=== PATIENT | male | born 1955 | race Hispanic/Latino ===

== ENCOUNTER → 2019-09-24 | Outpatient (CLI) | payer OTHER | END | disposition home or self-care (01) | LOC: SHCH 12:42 | PROVIDERS: ATTEND Internal Medicine Cardiovascular Disease | DX: I10 Essential (primary) hypertension (principal); R07.9 Chest pain, unspecified ==

== ENCOUNTER → 2019-10-12 | Outpatient (CLI) | payer OTHER ==
[~2019-10-12] MED LIST: REGADENOSON 0.4 MG/5 ML PF SYG IVP SCH
== END | disposition home or self-care (01) ==
LOC: SHCH 08:12
PROVIDERS: ATTEND Internal Medicine Cardiovascular Disease
DX: I10 Essential (primary) hypertension (principal); R07.9 Chest pain, unspecified
CPT/HCPCS: 78452; 93017; 96374; A9500 ×2; J2785

== ENCOUNTER → 2020-10-14 | Outpatient (CLI) | payer OTHER | END | disposition home or self-care (01) | LOC: OIH 14:30 | PROVIDERS: ATTEND Internal Medicine Cardiovascular Disease | DX: Z13.6 Encounter for screening for cardiovascular disorders (principal) | CPT/HCPCS: 75571 ==

== ENCOUNTER 2023-12-14 20:27 | Emergency (ER) | payer OTHER ==
[~2023-12-14] VITALS: Ht 180.3 cm; Wt 122.5 kg
[2023-12-14 21:30] LABS: APPEARANCE,URINE CLEAR (CLEAR); BILIRUBIN,URINE NEGATIVE (NEGATIVE); COLOR,URINE COLORLESS (YELLOW); GLUCOSE, URINE (UA) NEGATIVE (NEGATIVE); KETONES,URINE NEGATIVE (NEGATIVE); LEUKOCYTE ESTERASE ,URINE NEGATIVE Leu/uL (NEGATIVE); NITRATE,URINE NEGATIVE (NEGATIVE); OCCULT BLOOD,URINE NEGATIVE (NEGATIVE); PROTEIN,URINE NEGATIVE (NEGATIVE); UROBILINOGEN,URINE 0.2 mg/dL (0.2-1.0)
[2023-12-14 21:30] LABS: BASOPHILS # (AUTO) 0.04 K/uL (0.00-0.20); BASOPHILS % (AUTO) 0.4 % (0.0-5.0); EOSINOPHILS # (AUTO) 0.09 K/uL (0.00-0.70); HEMATOCRIT 39.8 % (42-54); IMMATURE GRANULOCYTE ABSOLUTE 0.04 K/uL (0-1); LYMPHOCYTES % (AUTO) 21.5 % (21.0-51.0); MEAN CORPUSCULAR HEMOGLOBIN 30.8 pg (27.0-33.0); MEAN CORPUSCULAR HGB CONC 34.4 g/dL (32.0-36.0); MEAN CORPUSCULAR VOLUME 89.4 fL (79-99); MONOCYTES # (AUTO) 0.7 K/uL (0.1-1.0); MONOCYTES % (AUTO) 7.3 % (3.0-13.0); NEUTROPHILS # (AUTO) 6.4 K/uL (1.8-7.7); NEUTROPHILS % (AUTO) 69.4 % (40.0-77.0); PLATELET COUNT (AUTO) 182 K/uL (130-400); RED BLOOD CELL COUNT(AUTO) 4.45 MIL/uL (4.50-6.20); RED CELL DISTRIBUTION WIDTH 12.4 % (11.0-15.5); WHITE BLOOD COUNT (AUTO) 9.2 K/uL (4.8-10.8)
[2023-12-14 21:32] LABS: RBC,URINE 0-1 /HPF (0-1); WBC,URINE 0-1 /HPF (0-1)
[2023-12-14 21:41] LABS: CREATININE 1.1 mg/dL (0.5-1.3); POTASSIUM 3.6 mmol/L (3.5-5.1)
[2023-12-14] MEDS ORDERED: TYL2 PO (21:52)
[2023-12-14] MEDS ORDERED: CEPH500B PO (21:52)
[2023-12-14] MEDS ORDERED: TAMS-1 PO (21:52)
[2023-12-14] MEDS: traMADol HCL 50 MG TABLET PO ONE (22:02)
[2023-12-14] MEDS: 0.9%NACL 1000ML 1,000 ML IV ONE (22:03)
[2023-12-14] MEDS: tamSULOsin HCL 0.4 MG CAP.ER.24H PO ONE (22:03)
[2023-12-14] MEDS: ondanSETRON 4MG INJ IVP ONE (23:05)
[2023-12-14 23:15] VITALS: BP 142/64; PULSE 76; RESP 16; TEMP 98.2; O2SAT 98
== END 2023-12-14 23:16 | disposition home or self-care (01) ==
LOC: EDH 20:27
DX: N20.0 Calculus of kidney (principal); E11.9 Type 2 diabetes mellitus without complications; E78.00 Pure hypercholesterolemia, unspecified; I10 Essential (primary) hypertension; Z88.6 Allergy status to analgesic agent; Z98.890 Other specified postprocedural states
CPT/HCPCS: 99285; 74176; 96374; 96361; 80048; 85025; 81001; 36415; J7030; J2405

== ENCOUNTER 2024-02-04 20:00 | Emergency (ER) | payer OTHER ==
[~2024-02-04] VITALS: Ht 180.3 cm; Wt 120.7 kg
[~2024-02-04 20:00] MED LIST changes: +ACET-2079 PO; -REGADENOSON 0.4 MG/5 ML PF SYG IVP SCH
--- NOTE | 2024-02-04 20:08 | EKG ---
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
[2024-02-04 20:33] LABS: BASOPHILS # (AUTO) 0.04 K/uL (0.00-0.20); BASOPHILS % (AUTO) 0.5 % (0.0-5.0); EOSINOPHILS # (AUTO) 0.15 K/uL (0.00-0.70); IMMATURE GRANULOCYTE ABSOLUTE 0.04 K/uL (0-1); LYMPHOCYTES # (AUTO) 2.3 K/uL (1.0-4.8); LYMPHOCYTES % (AUTO) 31.1 % (21.0-51.0); MEAN CORPUSCULAR HEMOGLOBIN 31.9 pg (27.0-33.0); MEAN CORPUSCULAR HGB CONC 34.1 g/dL (32.0-36.0); MEAN CORPUSCULAR VOLUME 93.5 fL (79-99); MONOCYTES # (AUTO) 0.6 K/uL (0.1-1.0); MONOCYTES % (AUTO) 7.8 % (3.0-13.0); NEUTROPHILS # (AUTO) 4.3 K/uL (1.8-7.7); NEUTROPHILS % (AUTO) 58.1 % (40.0-77.0); PLATELET COUNT (AUTO) 178 K/uL (130-400); RED BLOOD CELL COUNT(AUTO) 4.17 MIL/uL (4.50-6.20); RED CELL DISTRIBUTION WIDTH 12.8 % (11.0-15.5); WHITE BLOOD COUNT (AUTO) 7.5 K/uL (4.8-10.8)
[2024-02-04 20:50] LABS: POTASSIUM 3.9 mmol/L (3.5-5.1)
[2024-02-04] MEDS: morPHINE 2 MG SYG IVP ONE (20:55)
[2024-02-04] MEDS: ORPHENADRINE 60MG/2ML IVP ONE (20:55)
[2024-02-04 21:05] VITALS: BP 150/66; PULSE 71; RESP 18; TEMP 98.1; O2SAT 98
[2024-02-04] MEDS ORDERED: CYCL10TA16 PO (21:15)
--- NOTE | 2024-02-04 21:17 | ERN ---
General Chief Complaint: Multiple Complaints Stated Complaint: NECK PAIN Time Seen by MD: 20:02 Time Seen by Midlevel: 20:02 Source: patient History of Present Illness Initial Comments Patient is a 68-year-old male presenting to the emergency department with left- sided neck pain that started two days ago. The neck pain radiates to the back of his head and left arm. The pain is rated five on a 0-10 scale. He specifically denies any chest pain or difficulty breathing. He also denies nausea, vomiting, diarrhea, dizziness, vision changes, headache, or any other symptoms at this time. He does report going to the chiropractor several days ago and believes this may be the result of the neck manipulation they did to him. Allergies: Coded Allergies: metoclopramide (Unverified Allergy, Unknown, 01/05/24) naproxen (Unverified Allergy, Unknown, 10/11/19) timolol (Unverified Allergy, Unknown, 01/05/24) Home Meds Active Scripts Cyclobenzaprine HCl (Flexeril) 10 Mg Tab, 10 MG PO BID for muscle sstiffness for 5 Days, #10 TAB 0 Refills Prov:MILDRED AVILA 02/04/24 Acetaminophen with Codeine (Acetaminophen-Cod #3 Tablet) 300 Mg-30 Mg Tablet, 1 TAB PO Q4H PRN for MODERATE TO SEVERE PAIN, #15 TAB Prov:BRISEYDA LACY NP 12/31/23 Past Medical History Past Medical History: Diabetes-Type II, High Cholesterol, Hypertension, Hypothyroid, Other Medical History Other: ACID REFLUX, GASTRITIS, NECK PAIN Past Surgical History: Other Surgical History Other: SEPTOPLASTY ROS Dictation CONSTITUTIONAL: Negative except for HPI HEAD/FACE: Negative except for HPI EENT: Negative except for HPI RESPIRATORY: Negative except for HPI GASTROINTESTINAL/ABDOMINAL: Negative except for HPI GENITOURINARY: Negative except for HPI MUSCULOSKELETAL: Negative except for HPI INTEGUMENTARY: Negative except for HPI NEUROLOGICAL/PSYCH: Negative except for HPI HEMATOLOGIC/LYMPHATIC: Negative except for HPI All Systems Negative, Except as noted above. 13 point review of systems assessed and all negative except for above. Physical Exam Physical Exam Dictation Vital Signs reviewed General Appearance: Alert, oriented x 3, no acute distress, well developed, no urished. Head and Face: non-traumatic. Eyes: PERRL, pink conjunctivas, eyelid no trauma, anterior chamber with arcus senilis. Ears: Pinnas intact and no signs of trauma or erythema ear canals clear and no discharge TM no erythema Nose: No discharge, no bleeding. Oropharynx: Mouth normal, tongue pink, pharynx clear,no erythema, tonsils no exudates, no abscesses noted, mucous m embrane moist Neck: Supple, non-tender, no thyromegaly, no masses, no JVD, no bruits Breast:Deferred Chest:No tenderness, no crepitus, no paradoxical movement, no retractions Lungs:Clear, well-ventilated, symmetric, no rales, no wheezing, no rhonchi, no stridor, good breath sounds bilaterally Heart: Regular rate, regular rhythm, no murmur, no gallops Vascular: no peripheral edema, Abdomen: Soft, positive bowel sounds, nondistended, no guarding, nontender, no rebound, no masses no hepatomegaly, no splenomegaly, no Bradley's sign, no hernias. Rectal: Deferred Genital: Deferred Neurological: Normal speech, motor function intact, sensory function intact Musculoskeletal: Neck nontender, full range of motion, back nontender, full range of motion, Extremities: nontender, full range of motion Skin: Color pink, dry, no turgor, no rash, no lacerations, no abrasions, no contusions. Lymphatic: Deferred Results Laboratory and Microbiology Lab and Micro Result Laboratory Tests Test 02/04/24 20:24 White Blood Count 7.5 K/uL (4.8-10.8) Red Blood Count 4.17 MIL/uL (4.50-6.20) L Hemoglobin 13.3 g/dL (14.0-18.0) L Hematocrit 39.0 % (42-54) L Mean Corpuscular Volume 93.5 fL (79-99) Mean Corpuscular Hemoglobin 31.9 pg (27.0-33.0) Mean Corpuscular Hemoglobin Concent 34.1 g/dL (32.0-36.0) Red Cell Distribution Width 12.8 % (11.0-15.5) Platelet Count 178 K/uL (130-400) Mean Platelet Volume 9.7 fL (7.5-10.5) Immature Granulocyte % (Auto) 0.5 % (0-1) Neutrophils (%) (Auto) 58.1 % (40.0-77.0) Lymphocytes (%) (Auto) 31.1 % (21.0-51.0) Monocytes (%) (Auto) 7.8 % (3.0-13.0) Eosinophils (%) (Auto) 2.0 % (0.0-8.0) Basophils (%) (Auto) 0.5 % (0.0-5.0) Neutrophils # (Auto) 4.3 K/uL (1.8-7.7) Lymphocytes # (Auto) 2.3 K/uL (1.0-4.8) Monocytes # (Auto) 0.6 K/uL (0.1-1.0) Eosinophils # (Auto) 0.15 K/uL (0.00-0.70) Basophils # (Auto) 0.04 K/uL (0.00-0.20) Absolute Immature Granulocyte (auto 0.04 K/uL (0-1) Nucleated Red Blood Cells 0.0 % (0.0-0.19) Sodium Level 138 mmol/L (136-145) Potassium Level 3.9 mmol/L (3.5-5.1) Chloride Level 103 mmol/L (101-111) Carbon Dioxide Level 28 mmol/L (21-32) Blood Urea Nitrogen 21 mg/dL (7-18) H Creatinine 1.0 mg/dL (0.5-1.3) Glomerular Filtration Rate Calc 81 mL/min (>90) Random Glucose 150 mg/dL (70-105) H Total Calcium 9.4 mg/dL (8.5-10.1) Magnesium Level 2.00 mg/dL (1.80-2.40) Troponin I High Sensitivity 6 ng/L (4-75) Labs Reviewed?: Yes MDM MDM: Patient is a 68-year-old male presenting to the emergency department with left-sided neck pain that started two days ago. The neck pain radiates to the back of his head and left arm. The pain is rated five on a 0-10 scale. He specifically denies any chest pain or difficulty breathing. He also denies nausea, vomiting, diarrhea, dizziness, vision changes, headache, or any other symptoms at this time. He does report going to the chiropractor several days a go and believes this may be the result of the neck manipulation they did to him. On physical examination patient is alert and oriented x4. He was able to ambulate from the triage area to the examination room without assistance and with a normal gait. His neurological examination is unremarkable. Patient has a GCS of 15. There was no facial droop, no slurred speech, no arm drift. He denies numbness to bilateral upper and lower extremities. He was some mild paraspinal cervical tenderness no midline tenderness. He was full range motion of his neck. Cardiac workup was performed given his pain to the left arm however everything is normal. Cardiac enzymes are negative. EKG does not show any ST elevations. Chest x-ray does not show any acute abnormalities. Patient was given pain medication and a muscle relaxer and will be discharged home with supportive management. Patient was advised to follow up with the PCP in 2-3 days for repeat evaluation. Differential diagnosis: Cervical strain, ACS, There are no social concerns with this patient. Prescription drug management Prescriptions will include: Flexeril Medical management and examination interpretation discussions were had by me with other qualified healthcare professionals as indicated for the patient's care. ED Course Orders Procedure Category Date Status Time 12 Lead Ekg Tracing- EKG 02/04/24 Resulted Technical 20:03 Troponin I High LAB 02/04/24 Complete Sensitivity 20:03 Cbc With Differential LAB 02/04/24 Complete 20:07 Basic Metabolic Panel LAB 02/04/24 Complete 20:07 Magnesium LAB 02/04/24 Complete 20:07 Chest 1vw RAD 02/04/24 Resulted 20:07 Orphenadrine Citrate PHA 02/04/24 Complete (Norflex) 21:00 Morphine 2mg Syg PHA 02/04/24 Complete (Morphine 2mg Syg) 21:00 Current Medications Medications (Trade) Dose Ordered Sig/Natasha Route PRN Reason Start Time Stop Time Status Last Admin Dose Admin Morphine Sulfate (morPHINE 2MG SYG) 2 mg ONCE ONCE IVP 02/04/24 21:00 02/04/24 21:01 DC 02/04/24 20:55 Orphenadrine Citrate (Norflex) 60 mg ONCE ONCE IVP 02/04/24 21:00 02/04/24 21:01 DC 02/04/24 20:55 Vital Signs Date Time Temp Pulse Resp B/P (MAP) Pulse Ox O2 Delivery O2 Flow Rate FiO2 02/04/24 21:05 98.1 71 18 150/66 98 Room Air* 0 21 02/04/24 20:21 98.8 74 20 168/83 98 Room Air* 0 02/04/24 20:02 98.2 64 16 170/83 98 Room Air [facility] [address] [place] [address] IMAGING REPORT Signed PATIENT: FERNANDO ROBISON MR#: [id number] : 1955 SEX: M AGE: 68 LOCATION: [facility] ORDER 07 STATUS: REG ER REPORT#: [id number] SERVICE 06 REASON: LEFT ARM PAIN, SOB ORDERING PHYSICIAN: MILDRED AVILA PROCEDURE: CXR1VW - CHEST 1VW INDICATION: LEFT ARM PAIN, SOB TECHNIQUE: CHEST 1VW COMPARISON: 01/05/2024 FINDINGS/IMPRESSION: Prominent bilateral interstitial markings which may represent bronchitis or vascular congestion in the proper clinical setting. Cardiac silhouette is within normal limits. Mild degenerative changes of the spine. The visualized upper abdomen appears unremarkable. DICTATED BY: DEBORAH MESA MD DATE: 02/04/242118 ELECTRONICALLY SIGNED BY: DEBORAH MESA MD DATE: 02/04/242121 DX & DISP Disposition: Discharge Departure Impression: Primary Impression: Cervical strain Condition: Stable Scripts Cyclobenzaprine HCl (Flexeril) 10 Mg Tab 10 MG PO BID for muscle sstiffness for 5 Days, #10 TAB 0 Refills Prov: MILDRED AVILA 02/04/24 Additional Instructions: Your blood work today is unremarkable. Your neck pain is most likely related to your visit with a chiropractor. Please avoid any neck manipulation in the future as this may cause injury to her neck. Follow up with your primary care doctor in 2-3 days for repeat evaluation. Referrals: ADRI DUNBAR (PCP) Time of Disposition: 21:14 I have reviewed the case, and I agree with, Diagnosis and Plan I performed the substantive portion of the visit. I have reviewed and personally made and approve the management plan that is documented in the note by myself or the LANCE. I acknowledge for responsibility for the patient's management plan. MILDRED AVILA Feb 04, 2024 21:17
--- NOTE | 2024-02-04 21:22 | HMCIMG ---
INDICATION: LEFT ARM PAIN, SOB TECHNIQUE: CHEST 1VW COMPARISON: 01/05/2024 FINDINGS/IMPRESSION: Prominent bilateral interstitial markings which may represent bronchitis or vascular congestion in the proper clinical setting. Cardiac silhouette is within normal limits. Mild degenerative changes of the spine. The visualized upper abdomen appears unremarkable.
== END 2024-02-04 21:56 | disposition home or self-care (01) ==
LOC: EDH 20:00
DX: S16.1XXA Strain of muscle, fascia and tendon at neck level, initial encounter (principal); E03.9 Hypothyroidism, unspecified; E11.9 Type 2 diabetes mellitus without complications; E78.00 Pure hypercholesterolemia, unspecified; I10 Essential (primary) hypertension; K21.9 Gastro-esophageal reflux disease without esophagitis; Z88.6 Allergy status to analgesic agent; Z98.890 Other specified postprocedural states; X58.XXXA Exposure to other specified factors, initial encounter; Y93.89 Activity, other specified; Y92.89 Other specified places as the place of occurrence of the external cause; Y99.8 Other external cause status
CPT/HCPCS: 99285; 96374; 71045; 96375; 83735; 84484; 80048; 85025; 36415; 93005; J2270; J2360

== ENCOUNTER 2024-04-03 22:00 | Emergency (ER) | payer OTHER ==
[~2024-04-03] VITALS: Ht 165.1 cm; Wt 72.6 kg
[~2024-04-03 22:00] MED LIST changes: +CYCL10TA16 PO
[2024-04-03 22:20] LABS: BASOPHILS # (AUTO) 0.04 K/uL (0.00-0.20); BASOPHILS % (AUTO) 0.4 % (0.0-5.0); EOSINOPHILS # (AUTO) 0.07 K/uL (0.00-0.70); EOSINOPHILS % (AUTO) 0.7 % (0.0-8.0); HEMATOCRIT 38.5 % (42-54); IMMATURE GRANULOCYTE ABSOLUTE 0.06 K/uL (0-1); LYMPHOCYTES # (AUTO) 1.7 K/uL (1.0-4.8); LYMPHOCYTES % (AUTO) 17.8 % (21.0-51.0); MEAN CORPUSCULAR HEMOGLOBIN 31.5 pg (27.0-33.0); MEAN CORPUSCULAR HGB CONC 34.8 g/dL (32.0-36.0); MEAN CORPUSCULAR VOLUME 90.6 fL (79-99); MONOCYTES # (AUTO) 0.4 K/uL (0.1-1.0); MONOCYTES % (AUTO) 4.7 % (3.0-13.0); NEUTROPHILS # (AUTO) 7.1 K/uL (1.8-7.7); NEUTROPHILS % (AUTO) 75.8 % (40.0-77.0); PLATELET COUNT (AUTO) 186 K/uL (130-400); RED BLOOD CELL COUNT(AUTO) 4.25 MIL/uL (4.50-6.20); RED CELL DISTRIBUTION WIDTH 12.6 % (11.0-15.5); WHITE BLOOD COUNT (AUTO) 9.4 K/uL (4.8-10.8)
[2024-04-03 22:30] LABS: CARBON DIOXIDE 29 mmol/L (21-32); CHLORIDE 100 mmol/L (101-111); CREATININE 1.1 mg/dL (0.5-1.3); GLOMERULAR FILTR. RATE CALC 73 mL/min (>90); GLUCOSE,RANDOM 198 mg/dL (70-105); SODIUM SERUM 136 mmol/L (136-145); UREA NITROGEN, BLOOD 18 mg/dL (7-18)
[2024-04-03] MEDS: morPHINE 4 MG SYG IVP ONE (22:33)
[2024-04-03] MEDS: MAG/ALUM/SIMETH 30 ML UDCUP PO ONE (22:33)
[2024-04-03] MEDS: DICYCLOMINE HCL 20 MG TAB PO ONE (22:33)
[2024-04-03 22:35] LABS: ALANINE AMINOTRANSFERASE 30 U/L (12-78); ALBUMIN 3.5 g/dL (3.5-5.0); ASPARTATE AMINOTRANSFERASE 17 U/L (10-37); BILIRUBIN,DIRECT < 0.1 mg/dL (0.0-0.3); BILIRUBIN,TOTAL 0.2 mg/dL (0.2-1.0); TOTAL PROTEIN, SERUM 7.5 g/dL (6.0-8.3)
[2024-04-03] MEDS ORDERED: IOHEXOL 350 MG/ML 100ML INFUS..BTL IV ONE (22:39)
--- NOTE | 2024-04-03 23:33 | HMCIMG ---
CT ABDOMEN/PELVIS W/CONTRAST HISTORY: Abdominal pain COMPARISON: 01/05/2024 TECHNIQUE: Multiple sequential axial images of the abdomen and pelvis were obtained from the dome of the diaphragm through symphysis pubis. Patient was given 100 cc of Omnipaque through intravenous route. Oral contrast was not given. FINDINGS: No pleural effusion is seen bilaterally. There is no evidence of parenchymal disease or pulmonary nodule of the visualized lower lungs. Degenerative changes of the thoracolumbar spine are present. The heart is not enlarged. Liver is enlarged with fatty changes measuring 19 cm. There is fluid-filled small bowel loop may be related to enterocolitis. The liver, spleen, adrenal glands and pancreas are unremarkable. There is no evidence of hydronephrosis bilaterally. No evidence of renal stone is seen. Fecal material is seen in the colon. There are normal size retroperitoneal and mesenteric lymph nodes. No ascites is seen. No CT evidence of acute appendicitis is seen. Pelvic sidewalls are symmetric bilaterally. Bladder is well distended without wall thickening. IMPRESSION: 1. Fluid-filled small bowel loops may be related to enteritis. No CT evidence of acute appendicitis is seen. CT was performed with one or more following dose reduction techniques: automated exposure control, adjustment of the mA and kv according to patient's size, or use of a iterative reconstruction technique.
[2024-04-03 23:41] LABS: APPEARANCE,URINE CLEAR (CLEAR); BILIRUBIN,URINE NEGATIVE (NEGATIVE); COLOR,URINE COLORLESS (YELLOW); GLUCOSE, URINE (UA) 200 mg/dL (NEGATIVE); KETONES,URINE NEGATIVE (NEGATIVE); LEUKOCYTE ESTERASE ,URINE NEGATIVE Leu/uL (NEGATIVE); NITRATE,URINE NEGATIVE (NEGATIVE); OCCULT BLOOD,URINE NEGATIVE (NEGATIVE); PROTEIN,URINE NEGATIVE (NEGATIVE); UROBILINOGEN,URINE 0.2 mg/dL (0.2-1.0)
[2024-04-03 23:43] LABS: ADD UA MICROSCOPIC YES
[2024-04-03 23:46] LABS: BACTERIA,URINE None Seen /HPF (None Seen); RBC,URINE 0-1 /HPF (0-1); SQUAMOUS EPITHELIAL CELL,UR Rare /HPF (0-2); WBC,URINE 0-1 /HPF (0-1)
[2024-04-03] MEDS ORDERED: ONDA-243 PO (23:59)
[2024-04-03] MEDS ORDERED: DICY20TA2 PO (23:59)
--- NOTE | 2024-04-04 00:01 | ERN ---
General Chief Complaint: Abdominal Pain Stated Complaint: ABDOMINAL PAIN Time Seen by MD: 22:03 History of Present Illness Initial Comments 68-year-old male brought in from home by EMS for epigastric pain and vomiting for 2 hours. Patient reports he has been in his normal state of health. He ate [employer] chicken at around 7:00 p.m. on 04/03/2024. Afterwards he developed epigastric pain and nausea. He vomited 2 times, non bilious, nonbloody vomit. No fevers, chest pain, diarrhea, or other symptoms. Stable vital signs per EMS. Allergies: Coded Allergies: metoclopramide (Unverified Allergy, Unknown, 01/05/24) naproxen (Unverified Allergy, Unknown, 10/11/19) timolol (Unverified Allergy, Unknown, 01/05/24) Home Meds Active Scripts Cyclobenzaprine HCl (Flexeril) 10 Mg Tab, 10 MG PO BID for muscle sstiffness for 5 Days, #10 TAB 0 Refills Prov:MILDRED AVILA 02/04/24 Acetaminophen with Codeine (Acetaminophen-Cod #3 Tablet) 300 Mg-30 Mg Tablet, 1 TAB PO Q4H PRN for MODERATE TO SEVERE PAIN, #15 TAB Prov:BRISEYDA LACY NP 12/31/23 Past Medical History Past Medical History: Diabetes-Type II, High Cholesterol, Hypertension, Hypothyroid, Other Medical History Other: ACID REFLUX, GASTRITIS, NECK PAIN Past Surgical History: Other Surgical History Other: SEPTOPLASTY ROS Dictation CONSTITUTIONAL: No chills, no fever, no weakness, no diaphoresis, no malaise. HEAD/FACE: No signs of trauma. EENT: No eye pain, no blurred vision, no tearing, no double vision, no ear pain, no ear discharge, no nose pain, no nasal congestion, no throat pain, no throat swelling, no mouth pain. RESPIRATORY: No cough, no orthopnea, no SOB, no stridor, no wheezing. CARDIOVASCULAR: No chest pain, no edema, no palpitations, no syncope. GASTROINTESTINAL/ABDOMINAL: Abdominal pain and vomiting GENITOURINARY: No abnormal discharge, no dysuria, no frequent urination, no hematuria. No complaints of pain in the genitals. MUSCULOSKELETAL: No back pain, no gout, no joint pain, no joint swelling, no muscle pain, no muscle stiffness, no neck pain. INTEGUMENTARY: No change in color, no change in hair/nails, no dryness, no lesion, no lumps, no rash. NEUROLOGICAL/PSYCH: No anxiety, not depressed, no emotional problem, no headache, no numbness, no pre-existing deficit, no history of seizures, no tremors, no weakness. HEMATOLOGIC/LYMPHATIC: Not anemic, no history of blood clots, no apparent bleeding, no bruising, glands not swollen. All Systems Negative, Except as Noted. Physical Exam Physical Exam Dictation VITAL SIGNS: Reviewed. GENERAL APPEARANCE: Alert, oriented x3, no acute distress, obese. HEAD AND FACE: Non-traumatic. EYES: PERRL, pink conjunctivas, eyelid no trauma, anterior chamber clear. EARS: Pinnas intact and no signs of trauma or erythema. Ear canals clear and no discharge. TMs no erythema. NOSE: No discharge, no bleeding. OROPHARYNX: Mouth normal, teeth no caries, tongue pink. Pharynx clear, no erythema. Tonsils no exudates, no abscesses noted. Mucous membrane moist. NECK: Supple, non-tender, no thyromegaly, no masses, no JVD, no bruits. BREAST: Deferred. CHEST: No tenderness, no crepitus, no paradoxical movement, no retractions. LUNGS: Clear, well-ventilated, symmetric, no rales, no wheezing, no rhonchi, no stridor, good breath sounds bilaterally. HEART: Regular rate, regular rhythm, no murmur, no gallops. VASCULAR: No peripheral edema. ABDOMEN: Soft, positive bowel sounds, nondistended, no guarding, nontender, no rebound, no masses no hepatomegaly, no splenomegaly, no Bradley's sign, no hernias. RECTAL: Deferred. GENITAL: Deferred. NEUROLOGICAL: Normal speech, gross motor function intact, gross sensory function intact. MUSCULOSKELETAL: Neck nontender, full range of motion, back nontender, full range of motion. EXTREMITIES: Nontender, full range of motion. SKIN: Color pink, dry, no turgor, no rash, no lacerations, no abrasions, no contusions. LYMPHATICS: Deferred. Results Laboratory and Microbiology Lab and Micro Result Laboratory Tests Test 04/03/24 22:13 04/03/24 23:30 White Blood Count 9.4 K/uL (4.8-10.8) Red Blood Count 4.25 MIL/uL (4.50-6.20) L Hemoglobin 13.4 g/dL (14.0-18.0) L Hematocrit 38.5 % (42-54) L Mean Corpuscular Volume 90.6 fL (79-99) Mean Corpuscular Hemoglobin 31.5 pg (27.0-33.0) Mean Corpuscular Hemoglobin Concent 34.8 g/dL (32.0-36.0) Red Cell Distribution Width 12.6 % (11.0-15.5) Platelet Count 186 K/uL (130-400) Mean Platelet Volume 9.5 fL (7.5-10.5) Immature Granulocyte % (Auto) 0.6 % (0-1) Neutrophils (%) (Auto) 75.8 % (40.0-77.0) Lymphocytes (%) (Auto) 17.8 % (21.0-51.0) L Monocytes (%) (Auto) 4.7 % (3.0-13.0) Eosinophils (%) (Auto) 0.7 % (0.0-8.0) Basophils (%) (Auto) 0.4 % (0.0-5.0) Neutrophils # (Auto) 7.1 K/uL (1.8-7.7) Lymphocytes # (Auto) 1.7 K/uL (1.0-4.8) Monocytes # (Auto) 0.4 K/uL (0.1-1.0) Eosinophils # (Auto) 0.07 K/uL (0.00-0.70) Basophils # (Auto) 0.04 K/uL (0.00-0.20) Absolute Immature Granulocyte (auto 0.06 K/uL (0-1) Nucleated Red Blood Cells 0.0 % (0.0-0.19) Sodium Level 136 mmol/L (136-145) Potassium Level 4.0 mmol/L (3.5-5.1) Chloride Level 100 mmol/L (101-111) L Carbon Dioxide Level 29 mmol/L (21-32) Blood Urea Nitrogen 18 mg/dL (7-18) Creatinine 1.1 mg/dL (0.5-1.3) Glomerular Filtration Rate Calc 73 mL/min (>90) Random Glucose 198 mg/dL (70-105) H Total Calcium 9.8 mg/dL (8.5-10.1) Total Bilirubin 0.2 mg/dL (0.2-1.0) Direct Bilirubin < 0.1 mg/dL (0.0-0.3) Aspartate Amino Transf (AST/SGOT) 17 U/L (10-37) Alanine Aminotransferase (ALT/SGPT) 30 U/L (12-78) Alkaline Phosphatase 60 U/L (50-136) Troponin I High Sensitivity 7 ng/L (4-75) Total Protein 7.5 g/dL (6.0-8.3) Albumin 3.5 g/dL (3.5-5.0) Lipase 19 U/L (16-77) Urine Color COLORLESS (YELLOW) Urine Appearance CLEAR (CLEAR) Urine pH 7.0 (5.0-8.0) Urine Specific [place] 1.039 (1.001-1.031) Urine Protein NEGATIVE mg/dL (NEGATIVE) Urine Glucose (UA) 200 mg/dL (NEGATIVE) H Urine Ketones NEGATIVE mg/dL (NEGATIVE) Urine Occult Blood NEGATIVE (NEGATIVE) Urine Nitrate NEGATIVE (NEGATIVE) Urine Bilirubin NEGATIVE mg/dL (NEGATIVE) Urine Urobilinogen 0.2 mg/dL (0.2-1.0) Urine Leukocyte Esterase NEGATIVE Bar/uL Urine RBC 0-1 /HPF (0-1) Urine WBC 0-1 /HPF (0-1) Urine Squamous Epithelial Cells Rare /HPF (0-2) Urine Bacteria None Seen /HPF (None Seen) MDM CC: epigastric pain, vomiting x 2 hours. Historian: Patient Comorbidities: Obesity, diabetes type 2, DLD, HTN, hypothyroid, acid reflux and gastritis. Limitations by social determinants of health: None Differential diagnosis: Gastritis, electrolyte abnormality, surgical pathology, biliary disease, pancreatitis, other. Vital signs: Stable blood pressure, no tachycardia stable vital signs. Remained stable in the ER. EKG: Sinus rhythm, rate of 65, normal axis, good R-wave progression, intervals are stable. No STEMI. Independently interpreted by me. labs (independently interpreted and ordered by me): CBC shows no leukocytosis, mild anemia 13.4. Metabolic panel is unremarkable, liver function tests are unremarkable, troponin normal, lipase normal. UA shows high specific gravity, otherwise unremarkable. CT abdomen and pelvis with contrast (independently interpreted by me ): No free air or surgical pathology, gallbladder looks normal, mild distention of the abdomen no signs of bowel obstruction no signs of pancreatitis, kidneys look normal. Treatment in ER: Maalox, Bentyl, IV morphine for significant pain. Re-evaluation: Pain improved, stable Low suspicion for surgical pathology, vascular pathology, sepsis, or other life threats. I suspect flare-up of gastritis or reflux. Can be managed as an outpatient. Plan: DC with Maalox, diet modification, PCP follow up as needed. REASON: Abdominal Pain ORDERING PHYSICIAN: MACARENA REMY DO PROCEDURE: ABD PEL W - CT ABDOMEN/PELVIS W/CONTRAST CT ABDOMEN/PELVIS W/CONTRAST HISTORY: Abdominal pain COMPARISON: 01/05/2024 TECHNIQUE: Multiple sequential axial images of the abdomen and pelvis were obtained from the dome of the diaphragm through symphysis pubis. Patient was given 100 cc of Omnipaque through intravenous route. Oral contrast was not given. FINDINGS: No pleural effusion is seen bilaterally. There is no evidence of parenchymal disease or pulmonary nodule of the visualized lower lungs. Degenerative changes of the thoracolumbar spine are present. The heart is not enlarged. Liver is enlarged with fatty changes measuring 19 cm. There is fluid-filled small bowel loop may be related to enterocolitis. The liver, spleen, adrenal glands and pancreas are unremarkable. There is no evidence of hydronephrosis bilaterally. No evidence of renal stone is seen. Fecal material is seen in the colon. There are normal size retroperitoneal and mesenteric lymph nodes. No ascites is seen. No CT evidence of acute appendicitis is seen. Pelvic sidewalls are symmetric bilaterally. Bladder is well distended without wall thickening. IMPRESSION: 1. Fluid-filled small bowel loops may be related to enteritis. No CT evidence of acute appendicitis is seen. ED Course Orders Procedure Category Date Status Time Cbc With Differential LAB 04/03/24 Complete 22:04 Urinalysis Profile LAB 04/03/24 Complete 22:04 Ct Abdomen/Pelvis CT 04/03/24 Resulted W/Contrast 22:04 Lipase LAB 04/03/24 Complete 22:04 Basic Metabolic Panel LAB 04/03/24 Complete 22:04 Hepatic Function Panel LAB 04/03/24 Complete 22:04 Dicyclomine Hcl PHA 04/03/24 Complete (Bentyl 20mg Tab) 22:30 Mag/Alum/Simeth 30ml PHA 04/03/24 Complete (Maalox Plus 30ml) 22:30 Troponin I High LAB 04/03/24 Complete Sensitivity 22:04 12 Lead Ekg Tracing- EKG 04/03/24 Logged Technical 22:04 Morphine 4mg Syg PHA 04/03/24 Complete (Morphine 4mg Syg) 22:30 Iohexol (Omnipaque) PHA 04/03/24 Complete 22:39 Current Medications Medications (Trade) Dose Ordered Sig/Natasha Route PRN Reason Start Time Stop Time Status Last Admin Dose Admin Al Hydroxide/Mg Hydroxide (MAALox PLUS 30ML) 30 ml ONCE ONCE PO 04/03/24 22:30 04/03/24 22:31 DC 04/03/24 22:33 Dicyclomine HCl (Bentyl 20mg Tab) 20 mg ONCE ONCE PO 04/03/24 22:30 04/03/24 22:31 DC 04/03/24 22:33 Iohexol (Omnipaque) 35,000 mg STK-MED ONCE IV 04/03/24 22:39 04/03/24 22:39 DC Morphine Sulfate (morPHINE 4MG SYG) 4 mg ONCE ONCE IVP 04/03/24 22:30 04/03/24 22:31 DC 04/03/24 22:33 Vital Signs Date Time Temp Pulse Resp B/P (MAP) Pulse Ox O2 Delivery O2 Flow Rate FiO2 04/03/24 22:49 98.1 91 18 137/78 98 Room Air* 0 21 04/03/24 22:01 98.1 68 16 127/74 99 Room Air 0 DX & DISP Disposition: Discharge Departure Impression: Primary Impression: Food poisoning Additional Impression: Mild dehydration Condition: Stable Scripts Ondansetron (Ondansetron Odt) 4 Mg Tab.rapdis 1 TAB PO Q6HPRN PRN for nausea/vomiting for 3 Days, #9 TAB 0 Refills Prov: MACARENA REMY DO 04/03/24 Dicyclomine HCl (Bentyl) 20 Mg Tab 1 TAB PO TID for irritable bowel symptoms for 10 Days, #30 TAB 0 Refills Prov: MACARENA REMY DO 04/03/24 Additional Instructions: Your symptoms are consistent with food toxicity and mild dehydration. Otherwise there are no dangerous findings on your workup here today. Your vital signs have been stable here in the ER. Your lab work (CBC, BMP, liver function tests, lipase, urinalysis) shows some signs of mild dehydration but otherwise it is unremarkable. The CT scan of your abdomen and pelvis with contrast shows signs of gastroenteritis, which is consistent with food toxicity. There are no other dangerous findings or abnormalities. You received IV fluids, Maalox, and IV morphine here in the ER. I have prescribed ondansetron dissolvable tabs to use over the next few days for nausea and vomiting. Use as needed. I have prescribed dicyclomine tabs to use as needed for abdominal cramping or pain. Use as needed. You can also take [id number] Tylenol as needed. I recommend avoiding ibuprofen, aspirin, naproxen, another NSAIDs because they may irritate your stomach more. I recommend the BRAT (bananas, rice, applesauce, and toast) diet over the next 24-48 hours. Advance your diet as tolerated after that. If you have any concerning symptoms, please return to the emergency department. Referrals: ADRI DUNBAR (PCP) MACARENA REMY DO Apr 04, 2024 00:01
[2024-04-04 00:11] VITALS: BP 128/75; PULSE 91; RESP 18; TEMP 98.1; O2SAT 99
--- NOTE | 2024-04-04 07:07 | EKG ---
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
== END 2024-04-04 00:12 | disposition home or self-care (01) ==
LOC: EDH 22:00
DX: A05.9 Bacterial foodborne intoxication, unspecified (principal); E86.0 Dehydration; E03.9 Hypothyroidism, unspecified; E11.9 Type 2 diabetes mellitus without complications; E66.9 Obesity, unspecified; E78.00 Pure hypercholesterolemia, unspecified; I10 Essential (primary) hypertension; K21.9 Gastro-esophageal reflux disease without esophagitis; Z79.899 Other long term (current) drug therapy; Z88.6 Allergy status to analgesic agent; Z98.890 Other specified postprocedural states
CPT/HCPCS: 99285; 74177; 96374; 80076; 84484; 80048; 83690; 85025; 81001; 36415; 93005; J2270; Q9967

== ENCOUNTER 2024-08-30 18:07 | Emergency (ER) | payer OTHER, MEDICARE ==
[~2024-08-30] VITALS: Ht 180.3 cm; Wt 117.9 kg
[~2024-08-30 18:07] MED LIST changes: +DICY20TA2 PO; +ONDA-243 PO
[2024-08-30] MEDS: traMADol HCL 50 MG TABLET PO ONE (18:30)
--- NOTE | 2024-08-30 18:42 | ERN ---
General Chief Complaint: Knee Injury/Swelling Stated Complaint: KNEE PAIN Time Seen by MD: 18:08 Time Seen by Midlevel: 18:08 Source: patient History of Present Illness Initial Comments 69-year-old male presents to the emergency department by EMS due to right knee pain. Patient states he was getting into his truck and when he stepped with his right foot felt a pop at the knee. PMHx hypothyroidism, HTN, DM Allergies: Coded Allergies: metoclopramide (Unverified Allergy, Unknown, 01/05/24) naproxen (Unverified Allergy, Unknown, 10/11/19) timolol (Unverified Allergy, Unknown, 01/05/24) tramadol (Unverified Allergy, Unknown, SWELLING, 08/30/24) Uncoded Allergies: IV CONTRAST (Allergy, Unknown, SWELLING, 08/30/24) Home Meds Active Scripts Ondansetron (Ondansetron Odt) 4 Mg Tab.rapdis, 1 TAB PO Q6HPRN PRN for nausea/vomiting for 3 Days, #9 TAB 0 Refills Prov:MACARENA REMY DO 04/03/24 Dicyclomine HCl (Bentyl) 20 Mg Tab, 1 TAB PO TID for irritable bowel symptoms for 10 Days, #30 TAB 0 Refills Prov:MACARENA REMY DO 04/03/24 Cyclobenzaprine HCl (Flexeril) 10 Mg Tab, 10 MG PO BID for muscle sstiffness for 5 Days, #10 TAB 0 Refills Prov:MILDRED AVILA 02/04/24 Acetaminophen with Codeine (Acetaminophen-Cod #3 Tablet) 300 Mg-30 Mg Tablet, 1 TAB PO Q4H PRN for MODERATE TO SEVERE PAIN, #15 TAB Prov:BRISEYDA LACY MERCANTILE REPORTER 12/31/23 Past Medical History Past Medical History: Diabetes-Type II, GERD, Hypertension Medical History Other: GLAUCOMA Past Surgical History: Other Surgical History Other: SEPTOPLASTY, EAR SX. ROS Dictation Constitutional: Negative for fever,chills, and weight loss Eyes: Negative for injury, pain,redness, and discharge ENT: Negative for injury,pain or swelling Cardiovascular: Negative for chest pain, palpitations, and edema Respiratory: Negative for shortness of breath, cough, and wheezing, Abdomen/GI: Negative for abdominal pain, nausea, vomiting, diarrhea, and constipation Back: Negative for injury and pain : Negative for painful urination, bleeding or discharge MS/Extremity: Positive for right knee pain Negative for injury and deformity Skin: Negative for rash, and discoloration Neuro: Negative for headache, weakness, numbness, tingling, and seizure Psych: Negative for suicide ideation, homicidal ideation, and hallucinations Physical Exam Physical Exam Dictation General: awake, alert, no acute distress Head/Face: Normocephalic, atraumatic Eyes: PERRL, EOMI, normal conjunctiva ENT: oral cavity clear, oral mucosa moist Neck: Supple, normal range of motion Cardiovascular: RRR, normal S1/S2 Respiratory: CTAB, no respiratory distress Skin: Warm, dry, normal turgor, no rash MS/Extremity: Pulses equal, no cyanosis, neurovascular intact, FROM. Tenderness on lateral and medial aspect of the right knee, normal range of motion Neuro: COAx4, GCS 15, strength 5/5, CN 2-12 intact, normal cerebellar exam Psych: Normal behavior, mood, and affect normal Results Laboratory and Microbiology Lab and Micro Result Laboratory Tests Test 08/30/24 19:35 08/30/24 20:36 White Blood Count 7.4 K/uL (4.8-10.8) Red Blood Count 4.30 MIL/uL (4.50-6.20) L Hemoglobin 13.8 g/dL (14.0-18.0) L Hematocrit 40.3 % (42-54) L Mean Corpuscular Volume 93.7 fL (79-99) Mean Corpuscular Hemoglobin 32.1 pg (27.0-33.0) Mean Corpuscular Hemoglobin Concent 34.2 g/dL (32.0-36.0) Red Cell Distribution Width 12.8 % (11.0-15.5) Platelet Count 184 K/uL (130-400) Mean Platelet Volume 9.3 fL (7.5-10.5) Immature Granulocyte % (Auto) 0.8 % (0-1) Neutrophils (%) (Auto) 59.5 % (40.0-77.0) Lymphocytes (%) (Auto) 29.2 % (21.0-51.0) Monocytes (%) (Auto) 8.2 % (3.0-13.0) Eosinophils (%) (Auto) 1.8 % (0.0-8.0) Basophils (%) (Auto) 0.5 % (0.0-5.0) Neutrophils # (Auto) 4.4 K/uL (1.8-7.7) Lymphocytes # (Auto) 2.2 K/uL (1.0-4.8) Monocytes # (Auto) 0.6 K/uL (0.1-1.0) Eosinophils # (Auto) 0.13 K/uL (0.00-0.70) Basophils # (Auto) 0.04 K/uL (0.00-0.20) Absolute Immature Granulocyte (auto 0.06 K/uL (0-1) Nucleated Red Blood Cells 0.0 % (0.0-0.19) Sodium Level 139 mmol/L (136-145) Potassium Level 4.2 mmol/L (3.5-5.1) Chloride Level 103 mmol/L (101-111) Carbon Dioxide Level 26 mmol/L (21-32) Blood Urea Nitrogen 17 mg/dL (7-18) Creatinine 0.8 mg/dL (0.5-1.3) Glomerular Filtration Rate Calc 95 mL/min (>90) Random Glucose 159 mg/dL (70-105) H Total Calcium 9.3 mg/dL (8.5-10.1) Troponin I High Sensitivity 7 ng/L (4-75) 8 ng/L (4-75) Labs Reviewed?: Yes EKG/XRAY/US/CT/MRI EKG Comment Date: 08/30/2024 Time: 1927 Rate: 58 EKG interpretation: Sinus rhythm, normal EKGs Reviewed by ED Attending X-RAY Comment REASON: injury ORDERING PHYSICIAN: NETO ARDON PROCEDURE: KNEE 4V RT - KNEE 4+VWS RT Exam Type: KNEE 4+VWS RT Clinical Information: injury Comparison: None Findings: The bone examination is unremarkable. No fractures or dislocations are seen. No radiopaque foreign bodies are noted. Soft tissues are preserved. IMPRESSION: Normal examination. DICTATED BY: ROSY NARAYANAN MD DATE: 08/30/24 185 MDM MDM: Differential diagnosis: Sprain, strain, fracture Rationale: 69-year-old male presents to the emergency department by EMS due to right knee pain. Patient states he was getting into his truck and when he stepped with his right foot felt a pop at the knee. PMHx hypothyroidism, HTN, DM Per physical examination patient has mild tenderness to the lateral medial aspect of the right knee, no swelling, no ecchymosis, normal range of motion, neurovascularly intact. X-ray of the right knee obtained with no indications of fractures or dislocations, degenerative changes noted. Patient was given tramadol, and placed on a knee brace. He was educated on findings and diagnosis. Advised to follow up PCP. Return to the emergency department if any worsening symptoms. During discharge patient verbalized chest pain and sensation of his throat closing. Patient was administered Benadryl and cardiac workup was initiated. Labs are within normal limits, troponin negative, 2nd troponin negative, normal EKG. Patient was administered Zofran, and Protonix. Patient verbalized he believes he might have been his gastritis acting up. All symptoms resolved, patient is chest pain-free. There are no social concerns with this patient. I independently interpreted the test that were performed, results were reviewed by me and considered findings on radiology if ordered. Medical management and examination interpretation discussions were had by me with other qualified healthcare professionals as indicated for the patient's care. ED Course Orders Procedure Category Date Status Time Knee 4+Vws Rt RAD 08/30/24 Resulted 18:20 Tramadol Hcl (Ultram) PHA 08/30/24 Complete 18:30 Diphenhydramine Hcl PHA 08/30/24 Complete (Benadryl Cap) 19:30 Cbc With Differential LAB 08/30/24 Complete 19:25 Basic Metabolic Panel LAB 08/30/24 Complete 19:25 Troponin I High LAB 08/30/24 Complete Sensitivity 19:25 12 Lead Ekg Tracing- EKG 08/30/24 Resulted Technical 19:25 Ondansetron 4mg Inj PHA 08/30/24 Complete (Zofran 4mg Inj) 20:00 Troponin I High LAB 08/30/24 Complete Sensitivity 20:10 Pantoprazole 40mg Tab PHA 08/30/24 Complete (Protonix 40mg Tab 20:30 Current Medications Medications (Trade) Dose Ordered Sig/Natasha Route PRN Reason Start Time Stop Time Status Last Admin Dose Admin Diphenhydramine HCl (BENAdryl CAP) 25 mg ONCE ONCE PO 08/30/24 19:30 08/30/24 19:31 DC 08/30/24 19:30 Ondansetron HCl (zoFRAN 4MG INJ) 4 mg ONCE ONCE IVP 08/30/24 20:00 08/30/24 20:01 DC 08/30/24 19:59 Pantoprazole Sodium (PROTonix 40MG TAB) 40 mg ONCE ONCE PO 08/30/24 20:30 08/30/24 20:31 DC 08/30/24 20:32 Tramadol HCl (UltRAM) 50 mg ONCE ONCE PO 08/30/24 18:30 08/30/24 18:31 DC 08/30/24 18:30 Vital Signs Date Time Temp Pulse Resp B/P (MAP) Pulse Ox O2 Delivery O2 Flow Rate FiO2 08/30/24 21:37 98.2 58 18 139/63 98 Room Air* 0 21 08/30/24 20:03 66 18 134/76 98 Room Air* 0 21 08/30/24 19:39 66 18 165/79 98 Room Air* 0 21 08/30/24 18:19 98.1 75 16 159/80 98 Room Air* 0 08/30/24 18:08 97.9 75 16 128/73 99 Room Air 0 DX & DISP Disposition: Discharge Departure Impression: Primary Impression: Knee sprain Additional Impression: Right knee pain Condition: Stable Additional Instructions: Discharge home. Rest. Follow up with primary care DrJeri in 24 hours. Return to the ER for any acute changes or worsening symptoms. If any medications were prescribed take as directed. Okay to continue home medications unless otherwise discussed during your visit in the emergency room today. Patient was also advised to follow-up with primary care physician in 1 to 2 days for continued monitoring. Referrals: ADRI DUNBAR (PCP) I performed the substantive portion of the visit. I have reviewed and person ally made and approve the management plan that is documented in the notes by myself or the LANCE. I acknowledge full responsibility for the patient's management plan. NETO ARDON Aug 30, 2024 18:42 MACARENA REMY DO Sep 01, 2024 08:22
--- NOTE | 2024-08-30 18:57 | HMCIMG ---
Exam Type: KNEE 4+VWS RT Clinical Information: injury Comparison: None Findings: The bone examination is unremarkable. No fractures or dislocations are seen. No radiopaque foreign bodies are noted. Soft tissues are preserved. IMPRESSION: Normal examination.
--- NOTE | 2024-08-30 19:26 | NUR ---
trandsfered care fransico reddy at this time
[2024-08-30] MEDS: DiphenhydrAMINE HCL 25 MG CAPSULE PO ONE (19:30)
[2024-08-30 19:44] LABS: BASOPHILS # (AUTO) 0.04 K/uL (0.00-0.20); BASOPHILS % (AUTO) 0.5 % (0.0-5.0); EOSINOPHILS # (AUTO) 0.13 K/uL (0.00-0.70); EOSINOPHILS % (AUTO) 1.8 % (0.0-8.0); HEMATOCRIT 40.3 % (42-54); IMMATURE GRANULOCYTE ABSOLUTE 0.06 K/uL (0-1); LYMPHOCYTES # (AUTO) 2.2 K/uL (1.0-4.8); LYMPHOCYTES % (AUTO) 29.2 % (21.0-51.0); MEAN CORPUSCULAR HEMOGLOBIN 32.1 pg (27.0-33.0); MEAN CORPUSCULAR HGB CONC 34.2 g/dL (32.0-36.0); MEAN CORPUSCULAR VOLUME 93.7 fL (79-99); MONOCYTES # (AUTO) 0.6 K/uL (0.1-1.0); MONOCYTES % (AUTO) 8.2 % (3.0-13.0); NEUTROPHILS # (AUTO) 4.4 K/uL (1.8-7.7); NEUTROPHILS % (AUTO) 59.5 % (40.0-77.0); PLATELET COUNT (AUTO) 184 K/uL (130-400); RED CELL DISTRIBUTION WIDTH 12.8 % (11.0-15.5); WHITE BLOOD COUNT (AUTO) 7.4 K/uL (4.8-10.8)
--- NOTE | 2024-08-30 19:48 | NUR ---
PATIENT STATES CALLED AND REMINDED HIM THAT HE WAS ALLERGIC TO TRAMADOL IN PAST.
[2024-08-30 19:55] LABS: CREATININE 0.8 mg/dL (0.5-1.3); POTASSIUM 4.2 mmol/L (3.5-5.1)
[2024-08-30] MEDS: ondanSETRON 4MG INJ IVP ONE (19:59)
--- NOTE | 2024-08-30 20:29 | NUR ---
PATIENT AMBULATED WITH CRUTCHES STEADY.
[2024-08-30] MEDS: PANTOPrazole 40 MG TAB DR PO ONE (20:32)
[2024-08-30 21:37] VITALS: BP 139/63; PULSE 58; RESP 18; TEMP 98.2; O2SAT 98
--- NOTE | 2024-08-31 08:53 | EKG ---
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
== END 2024-08-30 21:38 | disposition home or self-care (01) ==
LOC: EDH 18:07
DX: S83.91XA Sprain of unspecified site of right knee, initial encounter (principal); M25.561 Pain in right knee; E03.9 Hypothyroidism, unspecified; E11.9 Type 2 diabetes mellitus without complications; I10 Essential (primary) hypertension; Z88.5 Allergy status to narcotic agent; Z88.6 Allergy status to analgesic agent; W18.39XA Other fall on same level, initial encounter; Y93.89 Activity, other specified; Y92.89 Other specified places as the place of occurrence of the external cause; Y99.8 Other external cause status
CPT/HCPCS: 99285; 96374; 84484 ×2; 80048; 85025; 36415; 73564; 93005; Q0163; J2405